=== PATIENT | female | born 1955 | race Caucasian/White ===

== ENCOUNTER 2018-04-22 00:48 | Inpatient (IN) ==
--- NOTE | 2018-04-22 01:13 | Emergency Department Note ---
Disposition Clinical Impression: Acute alteration in mental status, Hypokalemia Disposition: Admitted As Inpatient Condition: Critical Time of Disposition: 04:12 Altered Mental Status HPI - General Chief Complaint: ED General Medical Stated Complaint: "Family Thinks She's Over Medicated" Time Seen by Provider: 04/22/18 00:58 Source: patient, family Mode of arrival: ambulatory Limitations: no limitations Nursing Notes Reviewed: Yes Vital Signs Reviewed: Yes - History of Present Illness HPI Narrative: 62-year-old female with history of brain aneurysm with previous clips, and psychiatric complaints arrives to the emergency department with alteration in mentation from baseline. The patient was recently started on Lexapro today as well as a recent baclofen prescription. The patient has been taking her prescriptions as prescribed. She denies any alcohol, recreational drug use associated with it. Patient is also on Xanax. The patient's family counted her pills and noted that the patient had taken more baclofen over the course of the past few days and prescribed but the patient is unsure of her exact prescription dose. The patient has had some alteration in mentation to the point where she states she is very dizzy and her family had to wake her up in the car. She denies any confusion in the room. The patient was noted to have multiple episodes where she is repeating herself and making jerking movements per family. No seizure-like activity noted. Patient denies any other complaints at this time. She is alert and oriented x3. - Related Data Home Medications Medication Instructions Recorded Confirmed ALPRAZolam [Xanax 1 MG Tablet] 1 mg PO QID 07/12/16 07/12/16 Escitalopram [Lexapro] 40 mg PO DAILY 07/12/16 07/12/16 Gabapentin [Neurontin] 300 mg PO HS 07/12/16 07/12/16 Ibuprofen [Motrin] 800 mg PO TID 07/12/16 07/12/16 Mirtazapine [Mirtazapine] 45 mg PO HS 07/12/16 07/12/16 Multivitamin [Multivitamins] 1 tab PO DAILY 07/12/16 08/27/17 Potassium Chloride [K-Tab ER] 10 meq PO BID 07/12/16 08/27/17 Ropinirole [Requip] 3 mg PO HS 07/12/16 08/27/17 Trazodone HCl 200 mg PO DAILY 07/12/16 08/27/17 hydroCHLOROthiazide 25 mg PO DAILY 07/12/16 08/27/17 [Hydrochlorothiazide] ALPRAZolam [Xanax 1 MG Tablet] 1 mg PO QID PRN 08/27/17 08/27/17 Gabapentin [Neurontin] 300 mg PO DAILY PRN 08/27/17 08/27/17 Mirtazapine [Remeron] 45 mg PO DAILY 08/27/17 08/27/17 Zolpidem [Ambien] 10 mg PO HS PRN 08/27/17 08/27/17 Previous Rx's Medication Instructions Recorded HYDROcodone/Acet 5/325 mg [[place] 1 - 2 tab PO Q4H PRN 3 Days #10 tab 04/03/18 5-325 mg] cephALEXin [Keflex] 500 mg PO BID 5 Days #10 capsule 04/03/18 Allergies Allergy/AdvReac Type Severity Reaction Status Date / Time No Known Allergies Allergy Verified 04/22/18 00:54 All systems ED: reviewed and negative except as stated. Constitutional: Denies: fever, chills, weakness ENT ED: Denies: congestion Cardiovascular: Denies: chest pain Respiratory: Denies: dyspnea Gastrointestinal: Denies: abdominal pain, nausea, vomiting Genitourinary: Denies: urgency, dysuria Musculoskeletal: Denies: back pain, neck pain Integumentary: Denies: rash Neurological: Reports: confusion. Denies: headache, weakness, numbness, paresthesias, abnormal gait, vertigo Psychiatric: Denies: anxiety Past Medical History - Past Medical History Attestation: Yes The following information was validated with the patient. Source: patient, old records reviewed Medical history: Reports: COPD, GERD, hyperlipidemia, hypertension, other Surgical history: Reports: appendectomy, hysterectomy Psychiatric history: Reports: anxiety, depression - Social History Smoking Status: Current every day smoker Smokeless Tobacco Status: No Alcohol use: Reports: none Drug use: Reports: none Physical Exam - General Limitations: no limitations General appearance: alert, in no apparent distress - Head Head exam: atraumatic, normocephalic, normal inspection - Eye Eye exam: Present: normal appearance, PERRL, EOMI - ENT ENT exam: normal exam, normal oropharynx, mucous membranes moist - Neck Neck exam: Present: normal inspection, full ROM, trachea midline - Chest Chest inspection: Present: normal inspection, symmetric chest wall rise - Respiratory Respiratory exam: Present: normal lung sounds bilaterally - Cardiovascular Cardiovascular exam: Present: regular rate, normal rhythm, normal heart sounds - Abdominal Exam Abdominal exam: Present: soft, Non-Tender. Absent: tenderness, distention, guarding, rebound, rigidity - Extremities Exam Extremities exam: Present: normal inspection, full ROM. Absent: tenderness, pedal edema - Neurological Exam Neurological exam: Present: alert, oriented X3 - Expanded Neurological Exam Patient oriented to: Present: person, place, time Speech: Present: fluid speech Cranial nerves: EOM function (II, III, IV, ): Normal, facial sensation (V): Normal, facial palsy (VII): Normal Cerebellar function: normal gait Motor strength - LUE: 5/5 Motor strength - RUE: 5/5 Motor strength - LLE: 5/5 Motor strength - RLE: 5/5 Sensory exam upper extremity: light touch: Normal Sensory exam lower extremity: light touch: Normal Coma Scale Eye Opening: Spontaneous Coma Scale Motor Response: Obeys Commands Coma Scale Verbal Response: Oriented Coma Scale Total: 15 - Skin Skin exam: Present: warm, dry, intact, normal color Course - Reevaluation(s) Reevaluation #1: Patient was experiencing continued alteration in mentation to the point where she became uncooperative. Given the patient's uncooperative behavior and alteration in mentation to the point where we did not feel as though the patient is protecting her airway, the patient was subsequently intubated. The patient's son and family were made aware and agreed to plan of care. At this time we are concerned about possible intracranial versus pharmacologic etiology of her symptoms. Please control was notified. Patient was started on a propofol drip after intubation. Patient's lab work is currently pending. Family is at bedside and agrees with plan of care at this time. Time: 02:42 Reevaluation #2: Spoke with Poison control with update on labs. No further recommendations at this time. Time: 04:05 - Consultations Consultation #1: Attending physician spoke to poison control due to patient's numerous medications. Recommendations of benzodiazepine and further workup. Time: 02:34 Vital Signs Temperature 98.2 F 04/22/18 00:54 Pulse Rate 97 04/22/18 00:54 Respiratory Rate 18 04/22/18 00:54 Blood Pressure 153/84 04/22/18 00:54 O2 Sat by Pulse Oximetry 92 04/22/18 00:54 Temperature 98.2 F 04/22/18 00:54 Pulse Rate 67 04/22/18 04:16 Respiratory Rate 18 04/22/18 04:16 Blood Pressure 100/63 04/22/18 04:16 O2 Sat by Pulse Oximetry 95 04/22/18 04:16 Oxygen Delivery Oxygen Delivery Ventilator Procedures - Intubation Time out performed: Yes sedative: Etomidate Mg Given: 20 paralytic: Rocuronium Mg Given: 100 Laryngoscope: Meghan Assist Device Used: Bougie ET Tube Size: 7.5 ET Tube Uncuffed: No Tube Secured Depth (cm): 22 Tube Secured Location: lips Tube Placement Confirmation: visualized tube passing through cords, equal breath sounds bilaterally, no breath sounds over epigastrium Patient Tolerated Procedure: well, no complications Intubation Complications: none Altered Mental Status - MDM Narrative Medical decision making narrative: Patient's workup in the emergency department demonstrates no an etiology for patient's symptoms. During her ED visit the patient became combative and unable to be controlled. She was fighting any further care and was restricting ability to obtain labs and CT scan of the head. The patient's O2 saturation continued to drop into the upper 80s and low 90s. There was concern about mental status at that time so it was elected to intubate the patient and discussion with the patient's niece as well as son over the phone. They both agreed to plan of care. CTA of the head and neck demonstrates no acute process. Chest x-ray demonstrates left lower lobe atelectasis versus pneumonia so the patient was started on Rocephin. The patient's lab work is otherwise unremarkable. Patient was started on propofol drip to which she was continued to fight the ventilator and pullout the tube so that time the patient was administered 1 dose of Versed. She continued with this so physical drip was ordered. The femoral drip was not started however and the patient is now remain calm on propofol which we are currently weaning down. The patient's tachycardia and hypertension have begun to resolve and is now normotensive and expressing normal heart rate. The patient will be admitted to the ICU at this time. Poison control is aware of the patient in case and will continue to follow. Accepted by Dr. Novoa. Patient received 70 minutes of critical care time for evaluation of life- threatening illness requiring resuscitative efforts. This does not include interpretation of EKGs, x-rays, or billable procedures. - Lab Data Lab results reviewed: Yes I reviewed the patient's lab results. Result diagrams: 04/22/18 01:10 04/22/18 01:10 Lab Results 04/22/18 04/22/18 04/22/18 Range/Units 01:10 01:10 01:10 WBC 11.5 H (4.3-11.1) K/mcL RBC 4.58 (3.82-4.97) M/mcL Hgb 14.1 (11.5-15.4) g/dL Hct 41.8 (35.3-44.9) % MCV 91.3 (83.0-100.0) fL MCH 30.8 (28.0-33.3) pg MCHC 33.7 (31.6-35.5) g/dL RDW 12.5 (11.5-14.5) % Plt Count 341 (140-400) K/mcL MPV 8.4 L (9.4-12.4) fL Immature Gran % 0.3 (0-4) % Seg Neutrophils % 64.1 % Lymphocytes % 26.6 % Monocytes % 8.0 % Eosinophils % 0.7 % Basophils % 0.3 % Neutrophils # 7.4 (1.6-8.9) K/mcL Lymphocytes # 3.1 (0.6-4.6) K/mcL Monocytes # 0.9 (0.0-1.3) K/mcL Eosinophils # 0.1 (0.0-0.6) K/mcL Basophils # 0.0 (0.0-0.2) K/mcL PT 11.2 (9.4-12.1) Seconds INR 1.0 APTT 31.9 (26.0-36.0) Seconds VBG pH (7.32-7.42) pH Units VBG pCO2 (41-51) mmHg VBG pO2 (25-50) mmHg VBG HCO3 (21-27) mEq/L Sodium 136 (136-145) mEq/L Potassium 3.2 L (3.5-5.1) mEq/L Chloride 104 (98-107) mEq/L Carbon Dioxide 22 L (23-29) mEq/L BUN 23 (8-23) mg/dL Creatinine 1.04 (0.60-1.20) mg/dL Est GFR ( Amer) > 60 (> 60) Est GFR (Non-Af Amer) 54 L (> 60) BUN/Creatinine Ratio 22 (6-26) Glucose 118 H (70-105) mg/dL Calculated Osmolality 287 (280-300) Lactic Acid (0.5-2.2) mmol/L Calcium 9.9 (8.6-10.3) mg/dL Total Bilirubin 0.4 (0.3-1.0) mg/dL Direct Bilirubin 0.1 (0.0-0.2) mg/dL Indirect Bilirubin 0.3 (0.0-1.2) mg/dL AST 22 (13-39) Units/L ALT 20 (7-52) Units/L Alkaline Phosphatase 93 (34-104) Units/L Creatine Kinase 70 (30-223) Units/L Troponin I < 0.03 (< 0.04) ng/mL Serum Total Protein 7.6 (6.4-8.9) g/dL Albumin 4.6 (3.5-5.7) g/dL Globulin 3.0 (2.4-3.5) g/dL Albumin/Globulin Ratio 1.5 (1.1-2.2) Urine Color (Yellow) Urine Clarity (Clear) Urine pH (5.0-8.0) pH Units Ur Specific [place] (1.010-1.025) Urine Protein (Neg-Trace) mg/dL Urine Glucose (UA) (Normal) mg/dL Urine Ketones (Negative) mg/dL Urine Blood (Negative) Urine Nitrite (Negative) Urine Bilirubin (Negative) Urine Urobilinogen (Normal) mg/dL Ur Leukocyte Esterase (Negative) Urine Microscopic RBC (0-3) per hpf Urine Microscopic WBC (0-3) per hpf Ur Squamous Epith Cells (None-Few) per lpf Urine Bacteria (None-Few) per hpf Hyaline Casts (None-Few) per lpf Ur Culture Indicated? (NO) Salicylates < 2.5 L (15.0-30.0) mg/dL Urine Opiates Screen (Vgswzw=826) ng/mL Acetaminophen < 10 L (10-20) mcg/mL Ur Barbiturates Screen (Emudii=446) ng/mL Ur Phencyclidine Scrn (Cutoff=25) ng/mL Ur Amphetamines Screen (Wtmpkr=9305) ng/mL U Benzodiazepines Scrn (Tkectc=558) ng/mL Urine Cocaine Screen (Cutoff= 300) ng/mL U Marijuana (THC) Screen (Cutoff = 50) ng/mL Ur Drug Screen Interp Ethyl Alcohol < 10 (Less than 10) mg/dL 04/22/18 04/22/18 04/22/18 Range/Units 02:30 02:34 02:34 WBC (4.3-11.1) K/mcL RBC (3.82-4.97) M/mcL Hgb (11.5-15.4) g/dL Hct (35.3-44.9) % MCV (83.0-100.0) fL MCH (28.0-33.3) pg MCHC (31.6-35.5) g/dL RDW (11.5-14.5) % Plt Count (140-400) K/mcL MPV (9.4-12.4) fL Immature Gran % (0-4) % Seg Neutrophils % % Lymphocytes % % Monocytes % % Eosinophils % % Basophils % % Neutrophils # (1.6-8.9) K/mcL Lymphocytes # (0.6-4.6) K/mcL Monocytes # (0.0-1.3) K/mcL Eosinophils # (0.0-0.6) K/mcL Basophils # (0.0-0.2) K/mcL PT (9.4-12.1) Seconds INR APTT (26.0-36.0) Seconds VBG pH (7.32-7.42) pH Units VBG pCO2 (41-51) mmHg VBG pO2 (25-50) mmHg VBG HCO3 (21-27) mEq/L Sodium (136-145) mEq/L Potassium (3.5-5.1) mEq/L Chloride (98-107) mEq/L Carbon Dioxide (23-29) mEq/L BUN (8-23) mg/dL Creatinine (0.60-1.20) mg/dL Est GFR ( Amer) (> 60) Est GFR (Non-Af Amer) (> 60) BUN/Creatinine Ratio (6-26) Glucose (70-105) mg/dL Calculated Osmolality (280-300) Lactic Acid 1.8 (0.5-2.2) mmol/L Calcium (8.6-10.3) mg/dL Total Bilirubin (0.3-1.0) mg/dL Direct Bilirubin (0.0-0.2) mg/dL Indirect Bilirubin (0.0-1.2) mg/dL AST (13-39) Units/L ALT (7-52) Units/L Alkaline Phosphatase (34-104) Units/L Creatine Kinase (30-223) Units/L Troponin I (< 0.04) ng/mL Serum Total Protein (6.4-8.9) g/dL Albumin (3.5-5.7) g/dL Globulin (2.4-3.5) g/dL Albumin/Globulin Ratio (1.1-2.2) Urine Color Yellow (Yellow) Urine Clarity Clear (Clear) Urine pH 6.5 (5.0-8.0) pH Units Ur Specific [place] 1.021 (1.010-1.025) Urine Protein Trace (Neg-Trace) mg/dL Urine Glucose (UA) Normal (Normal) mg/dL Urine Ketones Negative (Negative) mg/dL Urine Blood Negative (Negative) Urine Nitrite Negative (Negative) Urine Bilirubin Negative (Negative) Urine Urobilinogen Normal (Normal) mg/dL Ur Leukocyte Esterase Negative (Negative) Urine Microscopic RBC 0-3 (0-3) per hpf Urine Microscopic WBC 0-3 (0-3) per hpf Ur Squamous Epith Cells None Seen (None-Few) per lpf Urine Bacteria None Seen (None-Few) per hpf Hyaline Casts None Seen (None-Few) per lpf Ur Culture Indicated? NO (NO) Salicylates (15.0-30.0) mg/dL Urine Opiates Screen Negative (Tilfmv=260) ng/mL Acetaminophen (10-20) mcg/mL Ur Barbiturates Screen Negative (Zkzslh=681) ng/mL Ur Phencyclidine Scrn Negative (Cutoff=25) ng/mL Ur Amphetamines Screen Negative (Tngmyc=0275) ng/mL U Benzodiazepines Scrn Positive H (Cpescv=678) ng/mL Urine Cocaine Screen Negative (Cutoff= 300) ng/mL U Marijuana (THC) Screen Negative (Cutoff = 50) ng/mL Ur Drug Screen Interp See Below Ethyl Alcohol (Less than 10) mg/dL 06/27/18 Range/Units 02:36 WBC (4.3-11.1) K/mcL RBC (3.82-4.97) M/mcL Hgb (11.5-15.4) g/dL Hct (35.3-44.9) % MCV (83.0-100.0) fL MCH (28.0-33.3) pg MCHC (31.6-35.5) g/dL RDW (11.5-14.5) % Plt Count (140-400) K/mcL MPV (9.4-12.4) fL Immature Gran % (0-4) % Seg Neutrophils % % Lymphocytes % % Monocytes % % Eosinophils % % Basophils % % Neutrophils # (1.6-8.9) K/mcL Lymphocytes # (0.6-4.6) K/mcL Monocytes # (0.0-1.3) K/mcL Eosinophils # (0.0-0.6) K/mcL Basophils # (0.0-0.2) K/mcL PT (9.4-12.1) Seconds INR APTT (26.0-36.0) Seconds VBG pH 7.32 (7.32-7.42) pH Units VBG pCO2 47 (41-51) mmHg VBG pO2 184 H (25-50) mmHg VBG HCO3 24 (21-27) mEq/L Sodium (136-145) mEq/L Potassium (3.5-5.1) mEq/L Chloride (98-107) mEq/L Carbon Dioxide (23-29) mEq/L BUN (8-23) mg/dL Creatinine (0.60-1.20) mg/dL Est GFR ( Amer) (> 60) Est GFR (Non-Af Amer) (> 60) BUN/Creatinine Ratio (6-26) Glucose (70-105) mg/dL Calculated Osmolality (280-300) Lactic Acid (0.5-2.2) mmol/L Calcium (8.6-10.3) mg/dL Total Bilirubin (0.3-1.0) mg/dL Direct Bilirubin (0.0-0.2) mg/dL Indirect Bilirubin (0.0-1.2) mg/dL AST (13-39) Units/L ALT (7-52) Units/L Alkaline Phosphatase (34-104) Units/L Creatine Kinase (30-223) Units/L Troponin I (< 0.04) ng/mL Serum Total Protein (6.4-8.9) g/dL Albumin (3.5-5.7) g/dL Globulin (2.4-3.5) g/dL Albumin/Globulin Ratio (1.1-2.2) Urine Color (Yellow) Urine Clarity (Clear) Urine pH (5.0-8.0) pH Units Ur Specific [place] (1.010-1.025) Urine Protein (Neg-Trace) mg/dL Urine Glucose (UA) (Normal) mg/dL Urine Ketones (Negative) mg/dL Urine Blood (Negative) Urine Nitrite (Negative) Urine Bilirubin (Negative) Urine Urobilinogen (Normal) mg/dL Ur Leukocyte Esterase (Negative) Urine Microscopic RBC (0-3) per hpf Urine Microscopic WBC (0-3) per hpf Ur Squamous Epith Cells (None-Few) per lpf Urine Bacteria (None-Few) per hpf Hyaline Casts (None-Few) per lpf Ur Culture Indicated? (NO) Salicylates (15.0-30.0) mg/dL Urine Opiates Screen (Zwrxxo=958) ng/mL Acetaminophen (10-20) mcg/mL Ur Barbiturates Screen (Qyfzul=955) ng/mL Ur Phencyclidine Scrn (Cutoff=25) ng/mL Ur Amphetamines Screen (Kcsjoi=9868) ng/mL U Benzodiazepines Scrn (Lrsjpa=807) ng/mL Urine Cocaine Screen (Cutoff= 300) ng/mL U Marijuana (THC) Screen (Cutoff = 50) ng/mL Ur Drug Screen Interp Ethyl Alcohol (Less than 10) mg/dL - Radiology Data Radiology results reviewed: Yes I reviewed the patient's radiology results. Chest X-Ray 04/22/18 01:10 IMPRESSION: 1. The endotracheal tube tip is 2-3 cm above the laz[place]. 2. Left basilar atelectasis or pneumonia. D/ / Cedric Chavez MD / Cedric Chavez MD Interpreting Provider: Cedric Chavez MD Angiography CT 04/22/18 02:18 IMPRESSION: Calcified plaques at the origins of the internal carotid arteries do not result in significant stenosis by NASCET criteria. Patent vertebral arteries bilaterally. Minimal calcified plaques at the origin the left vertebral artery compatible with mild stenosis. Patent [place] of [place]. A-comm and right MCA bifurcation aneurysm clips without acute findings. Extensive emphysematous changes of the lung apices. D/ / Patrick Westfall / Patrick Westfall Interpreting Provider: Patrick Westfall Neck CTA 04/22/18 02:18 IMPRESSION: Calcified plaques at the origins of the internal carotid arteries do not result in significant stenosis by NASCET criteria. Patent vertebral arteries bilaterally. Minimal calcified plaques at the origin the left vertebral artery compatible with mild stenosis. Patent [place]. A-comm and right MCA bifurcation aneurysm clips without acute findings. Extensive emphysematous changes of the lung apices. D/ / Patrick Westfall / Patrick Westfall Interpreting Provider: Patrick Westfall - EKG Data EKG attestation: Yes I reviewed and interpreted this EKG. EKG results narrative: Heart rate 75 beats for minute. Normal sinus rhythm with sinus arrhythmia. No ST elevation or ST depression noted. TPA Checklist - LKW: 3-4.5 hrs Add. Warnings/Precautions Patient/family understanding: The patient/family members have been counseled and understood the risk, benefit , and alternatives of treatment. Critical Care Time Critical Care Time: Yes Total Critical Care Time: 35 Attestation: The high probability of a clinically significant, sudden or life threatening deterioration of the [respiratory ] system(s) required my full and direct attention, intervention and personal management. The aggregate critical care time was [35] minutes. This time is in addition to time spent performing reported procedures but includes the following: Attestation Statement - Attestation Attestation: I examined this patient and my medical decision-making was reviewed with the Resident Physician. I agree with the documented findings, disposition and treatment plan as described except to the extent set forth below. Findings consistent with altered mental status and respiratory failure. Patient required emergent intubation for airway protection and to facilitate advanced imaging to ro intercranial process. Poison control was notified. Patient will be admitted to intensive care unit for ventilatory management and treatment of possible toxicological complications..
[2018-04-22] MEDS ORDERED: *HR* LORazepam 2 MG/ML VIAL IVP ONE (01:31)
[2018-04-22] MEDS ORDERED: Isovue-370 500 ML INFUS..BTL IV ONE (02:18)
[2018-04-22 02:37] LABS: Basophils % 0.3 %; Eosinophils # 0.1 K/mcL (0.0-0.6); Eosinophils % 0.7 %; Hematocrit 41.8 % (35.3-44.9); Hemoglobin 14.1 g/dL (11.5-15.4); Immature Granulocytes % 0.3 % (0-4); Lymphocytes # 3.1 K/mcL (0.6-4.6); Lymphocytes % 26.6 %; Mean Corpuscular HGB Conc 33.7 g/dL (31.6-35.5); Mean Corpuscular Hemoglobin 30.8 pg (28.0-33.3); Mean Corpuscular Volume 91.3 fL (83.0-100.0); Mean Platelet Volume 8.4 fL (9.4-12.4); Monocytes # 0.9 K/mcL (0.0-1.3); Neutrophils # 7.4 K/mcL (1.6-8.9); Platelet Count 341 K/mcL (140-400); Red Blood Count 4.58 M/mcL (3.82-4.97); Red Cell Distribution Width 12.5 % (11.5-14.5); Segmented Neutrophils % 64.1 %
[2018-04-22 02:40] LABS: VBG HCO3 24 mEq/L (21-27); VBG PCO2 47 mmHg (41-51); VBG PH 7.32 pH Units (7.32-7.42); VBG PO2 184 mmHg (25-50)
[2018-04-22 02:44] LABS: Prothrombin Time 11.2 Seconds (9.4-12.1)
[2018-04-22 02:47] LABS: Activated Partial Thrombo Time 31.9 Seconds (26.0-36.0)
[2018-04-22 02:53] LABS: Bilirubin,Urine Negative (Negative); Blood,Urine Negative (Negative); Clarity,Urine Clear (Clear); Color,Urine Yellow (Yellow); Glucose,Urine (UA) Normal (Normal); Ketones,Urine Negative (Negative); Leukocyte Esterase,Urine Negative (Negative); Nitrite,Urine Negative (Negative); PH,Urine 6.5 pH Units (5.0-8.0); Protein,Urine Trace mg/dL (Neg-Trace); Specific Gravity,Urine 1.021 (1.010-1.025); Urobilinogen,Urine Normal (Normal)
[2018-04-22 02:55] LABS: Bacteria,Urine None Seen per hpf (None-Few); Hyaline Casts,Urine None Seen per lpf (None-Few); RBC,Urine 0-3 per hpf (0-3); Squamous Epithelial Cell,Urine None Seen per lpf (None-Few); WBC,Urine 0-3 per hpf (0-3)
[2018-04-22] MEDS ORDERED: *HR* Midazolam HCl 2 MG/2 ML VIAL ONE (02:55)
[2018-04-22] MEDS ORDERED: *HR* Midazolam HCl 5 MG/5 ML VIAL IVP PRN (02:56)
[2018-04-22 03:05] LABS: Troponin I < 0.03 ng/mL (< 0.04)
[2018-04-22 03:06] LABS: Acetaminophen < 10 mcg/mL (10-20); Alanine Aminotransferase 20 Units/L (7-52); Albumin 4.6 g/dL (3.5-5.7); Albumin/Globulin Ratio 1.5 (1.1-2.2); Alkaline Phosphatase 93 Units/L (34-104); Aspartate Amino Transferase 22 Units/L (13-39); BUN/Creatinine Ratio 22 (6-26); Bilirubin,Direct 0.1 mg/dL (0.0-0.2); Bilirubin,Indirect 0.3 mg/dL (0.0-1.2); Bilirubin,Total 0.4 mg/dL (0.3-1.0); Blood Urea Nitrogen 23 mg/dL (8-23); Calcium 9.9 mg/dL (8.6-10.3); Carbon Dioxide 22 mEq/L (23-29); Chloride 104 mEq/L (98-107); Creatine Kinase 70 Units/L (30-223); Ethanol < 10 mg/dL (Less than 10); Glucose 118 mg/dL (70-105); Osmolality,Calculated 287 (280-300); Potassium 3.2 mEq/L (3.5-5.1); Salicylate < 2.5 mg/dL (15.0-30.0); Sodium 136 mEq/L (136-145); Total Protein 7.6 g/dL (6.4-8.9); eGFR For African Americans > 60 (> 60); eGFR For Non-African Americans 54 (> 60)
[2018-04-22] MEDS ORDERED: FentaNYL (PF) 1,000 MCG in 0.9 % Sodium Chloride 80 ML IVC SCH (03:30)
[2018-04-22 03:38] LABS: Amphetamine Screen,Urine Negative ng/mL (Cutoff=1000); Barbiturate Screen,Urine Negative ng/mL (Cutoff=200); Benzodiazepines Screen,Urine Positive ng/mL (Cutoff=200); Cannabinoid Screen,Urine Negative ng/mL (Cutoff = 50); Cocaine Screen,Urine Negative ng/mL (Cutoff= 300); Opiate Screen,Urine Negative ng/mL (Cutoff=300); Phencyclidine Screen,Urine Negative ng/mL (Cutoff=25)
[2018-04-22] MEDS ORDERED: cefTRIAXone 1,000 MG in Water for inj. (sterile) 20 ML 10 ML IVP ONE (03:50)
[2018-04-22] MEDS ORDERED: 0.9 % Sodium Chloride 1,000 ML ONE (03:54)
[2018-04-22] MEDS ORDERED: 0.9 % Sodium Chloride 1,000 ML IVC ONE (04:02)
[2018-04-22] MEDS ORDERED: *HR* Rocuronium Bromide 100 MG/10 ML VIAL IVC ONE (04:20)
[2018-04-22] MEDS ORDERED: *HR* Etomidate 20 MG/10 ML AMPUL IVP ONE (04:20)
[2018-04-22] MEDS ORDERED: Lacri-Lube 3.5 GM TUBE BOTH EYES PRN (05:00)
[2018-04-22] MEDS ORDERED: Potassium Phosphate 44 MEQ in 0.9 % Sodium Chloride 250 ML IVPB PRN (05:00)
--- NOTE | 2018-04-22 05:22 | Internal Med History&Physical ---
Date of Encounter: 04/22/18 Time of Encounter: 05:22 Internal Medicine - H&P: [facility] History of present illness: Ms. Flores is a 62 year old female with PMH of COPD, hyperlipidemia, hypertension, brain aneurysm with clips, and psychiatric complaints presented to the emergency department today with altered mental status. Patient is intubated and unable to provide history, therefore the majority of the information comes from the ER documentation. Per ER note, patient was started on Lexapro today and recently received baclofen prescription, she reports taking her prescriptions as prescribed. She does take xanax, which she has prescription for. Patient also takes baclofen, but she does not know exactly what dose she is prescribed. The family had been counting her pills and they noted she'd been taking more baclofen the last several days than what is prescribed. The patient's family counted her pills and noted that the patient had taken more baclofen over the course of the past few days and prescribed but the patient is unsure of her exact prescription dose. Regarding her change in mental status from baseline, the family reports the patient has had multiple episodes where she makes jerking movements and repeating herself when speaking. The family denies witnessing seizure-like activity. From what I can gather, the patient complained of dizziness and fell asleep in the car (presumably on the way to the ED) and the family had to wake her up. In the emergency department the patient had no complaints and was noted to be alert and oriented 3. While being worked up in the emergency department the patient continued to have altered mental status and became uncooperative to the point of concern for her ability to protect her own airway--she was subsequently intubated and started on a propofol gtt. CXR suspicious for possible LLL pneumonia and she was started on Rocephin. Past Med Surg Social Fam HX - Past Medical History Medical history: COPD, GERD, hyperlipidemia, hypertension, other Additional medical history: 2 brain anuerism, 3 clips in head, partial bowel removal Psychiatric history: anxiety, depression - Past Surgical History Surgical History: appendectomy, hysterectomy Additional surgical history: Lymph node removal in neck, brain aneurysm with clips 2004, sigmoid rescetion 1997, right shoulder total repair - Social History Smoking Status: Current every day smoker Smokeless Tobacco Status: No Alcohol use: none Drug use: none Internal Medicine - H&P: Meds ALPRAZolam [Xanax 1 MG Tablet] 1 mg PO QID 07/12/16 [History] Escitalopram [Lexapro] 40 mg PO DAILY 07/12/16 [History] Gabapentin [Neurontin] 300 mg PO HS 07/12/16 [History] Ibuprofen [Motrin] 800 mg PO TID 07/12/16 [History] Mirtazapine [Mirtazapine] 45 mg PO HS 07/12/16 [History] Multivitamin [Multivitamins] 1 tab PO DAILY 07/12/16 [History] Potassium Chloride [K-Tab ER] 10 meq PO BID 07/12/16 [History] Ropinirole [Requip] 3 mg PO HS 07/12/16 [History] Trazodone HCl 200 mg PO DAILY 07/12/16 [History] hydroCHLOROthiazide [Hydrochlorothiazide] 25 mg PO DAILY 07/12/16 [History] ALPRAZolam [Xanax 1 MG Tablet] 1 mg PO QID PRN 08/27/17 [History] Gabapentin [Neurontin] 300 mg PO DAILY PRN 08/27/17 [History] Mirtazapine [Remeron] 45 mg PO DAILY 08/27/17 [History] Zolpidem [Ambien] 10 mg PO HS PRN 08/27/17 [History] HYDROcodone/Acet 5/325 mg [Vail 5-325 mg] 1 - 2 tab PO Q4H PRN 3 Days #10 tab 04/03/18 [Rx] cephALEXin [Keflex] 500 mg PO BID 5 Days #10 capsule 04/03/18 [Rx] 3 Allergy/AdvReac Type Severity Reaction Status Date / Time No Known Allergies Allergy Verified 04/22/18 00:54 ROS unobtainable: due to endotracheal tube All Systems PM: A 10-system review of systems was performed and is negative for pertinent findings except as documented above in the HPI. - Constitutional Vitals: Temp Pulse Resp BP Pulse Ox 98.2 F 60 19 111/70 96 04/22/18 00:54 04/22/18 04:34 04/22/18 04:50 04/22/18 04:34 04/22/18 04:50 General appearance: Present: A&O X 0 (sedated on mechanical ventilation), no acute distress - Head Head exam: Present: atraumatic, normocephalic - Eye Eye exam: Present: normal appearance, PERRL Pupils: Present: PERRL - Neck Neck exam general surgery: Present: trachea midline - Respiratory Respiratory exam: Present: CTAB. Absent: wheezes - Cardiovascular Cardiovascular exam: Present: bradycardia, +S1, +S2 - GI/Abdominal GI/Abdominal exam: Present: normal bowel sounds, soft. Absent: distended, tenderness - Extremities Exam Extremities exam: Present: normal inspection. Absent: cyanotic, pedal edema, tenderness - Neurological Exam Additional comments: Patient is sedated on propofol and fentanyl drips - Skin Skin exam: Present: dry, intact, normal color Internal Med - H&P Results - Labs CBC & Chem 7: 04/22/18 01:10 04/22/18 06:40 - Assessment and plan (1) Encephalopathy acute Current Visit: Yes Status: Acute Assessment and plan: Etiology of altered mental status is unclear at this point--medication overdose? ? Cannot rule out intentional overdose or suicide attempt at this time, may need psych consult at some point Infectious etiology possible--CXR shows possible PNA vs atelectasis of left lung base CT head shows aneurysm clips without acute findings, bilaterally patent vertebral arteries; no intracranial hemorrhage, midline shift, mass effect, or hydrocephalus Metabolic encephalopathy seems less likely, metabolic panel unremarkable except for potassium 3.2 Plan Blood culture 2 Sputum culture with Gram stain Legionella and strep pneumo urine antigens (2) Hypokalemia Current Visit: Yes Status: Acute Assessment and plan: K 3.2 on admission Plan Replace PRN Recheck on daily BMP (3) DVT prophylaxis Current Visit: Yes Status: Acute Assessment and plan: Heparin 5,000 units subQ Q12H - Time Spent With Patient Total time spent is greater than 50% in coordination of care (as documented) at patient's floor/unit and/or counseling patient:
[2018-04-22 05:26] LABS: ABG Base Excess -1 mEq/L (-2 to 3); ABG HCO3 25 mEq/L (21-27); ABG Oxygen Saturation 95 % (95-98); ABG PCO2 45 mmHg (35-45); ABG PH 7.35 pH Units (7.32-7.45); ABG PO2 82 mmHg (85-104); ABG TCO2 26 mEq/L (20-26); Blood Gas Modality VC; Blood Gas PEEP 5 cm H2O; Blood Gas Respiration Rate 16; Blood Gas VT 450 cc
[2018-04-22] MEDS ORDERED: Magnesium Sulfate 2 GM/100 ML PIGGYBACK IVPB PRN (05:45)
[2018-04-22 06:59] LABS: VBG Ionized Calcium 1.13 mmol/L (1.15-1.35)
[2018-04-22 07:14] LABS: Phosphorous 3.2 mg/dL (2.7-4.5)
[2018-04-22 07:16] LABS: BUN/Creatinine Ratio 22 (6-26); Blood Urea Nitrogen 20 mg/dL (8-23); Calcium 9.7 mg/dL (8.6-10.3); Carbon Dioxide 22 mEq/L (23-29); Chloride 105 mEq/L (98-107); Glucose 109 mg/dL (70-105); Osmolality,Calculated 287 (280-300); Potassium 3.5 mEq/L (3.5-5.1); Sodium 137 mEq/L (136-145); eGFR For African Americans > 60 (> 60); eGFR For Non-African Americans > 60 (> 60)
[2018-04-22] MEDS: Lacri-Lube 3.5 GM TUBE BOTH EYES SCH ×2 (08:42→12:08)
[2018-04-22] MEDS ORDERED: Azithromycin 500 MG in D5% in Water 250 ML IVPB SCH (09:00)
[2018-04-22] MEDS ORDERED: Chlorhexidine Rinse 15 ML MOUTHWASH MM SCH (09:00)
[2018-04-22] MEDS ORDERED: Pantoprazole 40 MG VIAL IVP SCH (09:00)
--- NOTE | 2018-04-22 10:46 | Pulmonology Consult Note ---
<Stas Villegas - Last Filed: 04/22/18 10:43> Date of Encounter: 04/22/18 Time of Encounter: 08:46 Assessment and Plan (1) Encephalopathy acute Current Visit: Yes Status: Acute 1. Likely related to a multi drug overdose, unclear if it is intentional as no further history is been elicited. 2. Patient is on sedation and becomes quite agitated when it is weaned. We do think that she is ready for extubation, and we will turn off sedation and plan to extubate her today 3. Once she is extubated we will reevaluate her mental status and we will watch her for several hours and if she remains stable. We will transfer her to the floor. She may eventually need a psychiatry consult 4. We will go ahead and treat her with Rocephin and azithromycin for possible pneumonia based on her chest x-ray, although I do feel this is less likely Systems based plan: - Patient seen and examined. - Labs, radiology, chart personally reviewed. 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 Patient has significant neuro sedatives prescriptions including Lunesta, Ativan, baclofen, and trazodone. 2. Family states that they thought she had some missing baclofen and possibly had some crushed pills. 3. Urine drug screen is positive for benzodiazepines, which she is prescribed but her clinical presentation could have also been consistent with benzodiazepine overdose but more likely baclofen (3) Hypokalemia Current Visit: Yes Status: Acute 1. replaced and is now normal, will continue to monitor (4) DVT prophylaxis Current Visit: Yes Status: Acute 1. [facility] History of Present Illness Consult date: 04/22/18 Requesting physician: Dat Novoa Reason for consult: other (intubated) Chief complaint: AMS History of present illness: Patient presented to the ED with altered mental status and suspected drug overdose. Was intubated for airway protection and is thus in ICU. Patient described this morning and was quite agitated when sedation was weaned. Plan will be to extubate today. Past Med Surg Social Fam HX - Past Medical History Medical history: COPD, GERD, hyperlipidemia, hypertension, other Additional medical history: 2 brain anuerism, 3 clips in head, partial bowel removal Psychiatric history: anxiety, depression - Past Surgical History Surgical History: appendectomy, hysterectomy Additional surgical history: Lymph node removal in neck, brain aneurysm with clips 2004, sigmoid rescetion 1997, right shoulder total repair - Social History Smoking Status: Current every day smoker Smokeless Tobacco Status: No Alcohol use: none Drug use: none Medications and Allergies Trazodone HCl 200 mg PO HS 07/12/16 [History] hydroCHLOROthiazide [Hydrochlorothiazide] 25 mg PO DAILY 07/12/16 [History] ALPRAZolam [Xanax 1 MG Tablet] 1 mg PO QID PRN 08/27/17 [History] Albuterol Sulfate [Ventolin Hfa] 2 puff IH Q6H 04/22/18 [History] Atorvastatin [Lipitor] 10 mg PO DAILY 04/22/18 [History] Baclofen [Lioresal] 10 mg PO HS 04/22/18 [History] Escitalopram [Lexapro] 10 mg PO DAILY 04/22/18 [History] Eszopiclone [Lunesta] 1 mg PO HS 04/22/18 [History] Meloxicam [Meloxicam] 7.5 mg PO DAILY 04/22/18 [History] Mirtazapine [Remeron] 45 mg PO HS 04/22/18 [History] Ondansetron ODT [Zofran ODT] 4 mg SL BID PRN 04/22/18 [History] rOPINIRole [Requip] 3 mg PO HS 04/22/18 [History] 3 Allergy/AdvReac Type Severity Reaction Status Date / Time No Known Allergies Allergy Verified 04/22/18 00:54 ROS unobtainable: due to endotracheal tube All Systems: The remainder of the systems were reviewed and are negative Physical Examination Vital Signs: Vital Signs, Last 4 Hours Temp Pulse Resp BP Pulse Ox 04/22/18 10:00 63 18 109/64 98 04/22/18 09:40 18 116/64 98 06/27/18 09:00 68 18 116/69 100 04/22/18 08:30 98.2 F 56 18 129/73 100 18 08:00 98.2 F 56 18 129/73 100 04/22/18 07:40 98.2 F 04/22/18 07:00 59 18 118/67 100 General appearance: other (intubated and sedated) Eyes: nonicteric ENT: oropharynx dry Neck: supple Effort: normal (vent ) Auscultation: bilateral: clear Cardiovascular: regular rate and rhythm Gastrointestinal: normoactive bowel sounds, non-distended Integumentary: normal Extremities: no cyanosis, no edema, no clubbing Musculoskeletal: no deformities, ROM normal unable to assess due to mental status Ventilator Settings Ventilator Settings: Ventilator Settings, Last 8 Hours Ventilator Tidal Volume 450 Setting Ventilator Tidal Volume 450 Setting Ventilator Tidal Volume 450 Setting Ventilator Tidal Volume 450 Setting Ventilator Tidal Volume 450 Setting Ventilator Tidal Volume 450 Setting Ventilator Tidal Volume 450 Setting Ventilator Tidal Volume 450 Setting Ventilator Tidal Volume 450 Setting Ventilator Tidal Volume 450 Setting Ventilator Tidal Volume 450 Setting Ventilator Tidal Volume 450 Setting Ventilator Respiratory Rate 16 Setting Ventilator Respiratory Rate 16 Setting Ventilator Respiratory Rate 16 Setting Ventilator Respiratory Rate 16 Setting Ventilator Respiratory Rate 16 Setting Ventilator Respiratory Rate 16 Setting Ventilator Respiratory Rate 16 Setting Ventilator Respiratory Rate 16 Setting Ventilator Respiratory Rate 16 Setting Ventilator Respiratory Rate 16 Setting Ventilator Respiratory Rate 16 Setting Ventilator Respiratory Rate 16 Setting Actual Respiratory Rate 19 Actual Respiratory Rate 18 Actual Respiratory Rate 19 Actual Respiratory Rate 19 Actual Respiratory Rate 18 Actual Respiratory Rate 19 Actual Respiratory Rate 19 Actual Respiratory Rate 19 Actual Respiratory Rate 20 Actual Respiratory Rate 18 Actual Respiratory Rate 20 Positive End Expiratory 5 Pressure Positive End Expiratory 5 Pressure Positive End Expiratory 5 Pressure Positive End Expiratory 5 Pressure Positive End Expiratory 5 Pressure Positive End Expiratory 5 Pressure Positive End Expiratory 5 Pressure Positive End Expiratory 5 Pressure Positive End Expiratory 5 Pressure Positive End Expiratory 5 Pressure Positive End Expiratory 5 Pressure Positive End Expiratory 5 Pressure Peak Inspiratory Airway 22 Pressure Peak Inspiratory Airway 27 Pressure Peak Inspiratory Airway 22 Pressure Peak Inspiratory Airway 22 Pressure Peak Inspiratory Airway 26 Pressure Peak Inspiratory Airway 22 Pressure Peak Inspiratory Airway 22 Pressure Peak Inspiratory Airway 23 Pressure Peak Inspiratory Airway 21 Pressure Peak Inspiratory Airway 22 Pressure Peak Inspiratory Airway 18 Pressure Results - Laboratory Findings CBC and BMP: 04/22/18 01:10 04/22/18 06:40 ABG ABG pH 7.35 pH Units (7.32-7.45) 04/22/18 05:22 ABG pCO2 45 mmHg (35-45) 04/22/18 05:22 ABG pO2 82 mmHg (85-104) L 04/22/18 05:22 ABG O2 Saturation 95 % (95-98) 04/22/18 05:22 PT/INR, D-dimer PT 11.2 Seconds (9.4-12.1) 04/22/18 01:10 Abnormal lab findings: Abnormal lab results WBC 11.5 K/mcL (4.3-11.1) H 04/22/18 01:10 MPV 8.4 fL (9.4-12.4) L 04/22/18 01:10 ABG pO2 82 mmHg (85-104) L 04/22/18 05:22 VBG pO2 184 mmHg (25-50) H 04/22/18 02:36 Carbon Dioxide 22 mEq/L (23-29) L 04/22/18 06:40 Glucose 109 mg/dL (70-105) H 04/22/18 06:40 POC Glucose 117 mg/dL (70-99) H 04/22/18 04:59 Venous Ioniz Calcium 1.13 mmol/L (1.15-1.35) L 04/22/18 06:56 Salicylates < 2.5 mg/dL (15.0-30.0) L 04/22/18 01:10 Acetaminophen < 10 mcg/mL (10-20) L 04/22/18 01:10 U Benzodiazepines Scrn Positive ng/mL (Uyflyq=293) H 04/22/18 02:34 - Microbiology Findings Microbiology Findings: Microbiology, Last 48 Hours 04/22/18 06:39 Blood Culture - Preliminary Peripheral Venipuncture Culture is incubating and being continuously monitored for growth. Final report to follow. 04/22/18 06:38 Blood Culture - Preliminary Peripheral Venipuncture Culture is incubating and being continuously monitored for growth. Final report to follow. - Clinical Findings Intake & Output: Intake & Output 04/21/18 04/22/18 04/22/18 23:59 07:59 15:59 Intake Total 79 / 100 Output Total 1300 / 1300 Balance -1221 / -1200 Weight 75 kg Consult Discharge Plan - Plan Referrals: Kori Plascencia MD [Primary Care Provider] - <Mario Toussaint - Last Filed: 04/22/18 23:37> Date of Encounter: 04/22/18 All Systems: The remainder of the systems were reviewed and are negative Results - Laboratory Findings CBC and BMP: 04/22/18 11:53 04/22/18 11:53 ABG ABG pH 7.35 pH Units (7.32-7.45) 04/22/18 05:22 ABG pCO2 45 mmHg (35-45) 04/22/18 05:22 ABG pO2 82 mmHg (85-104) L 04/22/18 05:22 ABG O2 Saturation 95 % (95-98) 04/22/18 05:22 PT/INR, D-dimer PT 11.2 Seconds (9.4-12.1) 04/22/18 01:10 Abnormal lab findings: Abnormal lab results MPV 8.4 fL (9.4-12.4) L 04/22/18 11:53 ABG pO2 82 mmHg (85-104) L 04/22/18 05:22 VBG pO2 184 mmHg (25-50) H 04/22/18 02:36 Venous Ioniz Calcium 1.13 mmol/L (1.15-1.35) L 04/22/18 06:56 Salicylates < 2.5 mg/dL (15.0-30.0) L 04/22/18 01:10 Acetaminophen < 10 mcg/mL (10-20) L 04/22/18 01:10 U Benzodiazepines Scrn Positive ng/mL (Lokrkd=864) H 04/22/18 02:34 - Microbiology Findings Microbiology Findings: Microbiology, Last 48 Hours 04/22/18 06:39 Blood Culture - Preliminary Peripheral Venipuncture Culture is incubating and being continuously monitored for growth. Final report to follow. 04/22/18 06:38 Blood Culture - Preliminary Peripheral Venipuncture Culture is incubating and being continuously monitored for growth. Final report to follow. - Clinical Findings Intake & Output: Intake & Output 04/22/18 04/22/18 04/22/18 07:59 15:59 23:59 Intake Total 79 / 100 145 / 145 0 / 0 Output Total 1300 / 1300 300 / 300 300 / 300 Balance -1221 / -1200 -155 / -155 -300 / -300 Weight 75 kg - Attending Attestation I saw and evaluated this patient and my medical decision-making was reviewed with the Resident Physician. I agree with the documented findings, disposition and treatment plan as described except to the extent set forth below. We independently had [id number] contact with the patient I spent 40 minutes of Critical Care time with this patient. It involved decision making of high complexity to assess, manipulate, and support vital organ system failure and/or to prevent further life threatening deterioration of the patient's condition. The time involved in the performance of separately reportable procedures was not counted toward critical care time. Patient seen and examined at bedside Labs, radiology, chart personally reviewed. Management was reviewed during multidisciplinary critical care rounds. 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 Will do SBT when she wakes up most likely will be extubated today. Cards: Patient hemodynamically stable FEN-GI: NPO will advance diet when extubated Renal: Labs and output reviewed ID: No active issues Heme/Onc: Labs reviewed Endo: Glucose Monitored Integ/MSK: Skin Care per routine ICU Nursing Protocol to prevent ulcers. . Rt hand has some swelling due to some extravasation Lines: All lines examined without evidence of infection : Dispo: Transfer to [facility] after extubation CODE: Full Code
[2018-04-22] MEDS ORDERED: Nicotine 21 MG PATCH.TD24 TD STA (12:02)
[2018-04-22 12:07] LABS: Basophils % 0.2 %; Eosinophils # 0.2 K/mcL (0.0-0.6); Eosinophils % 2.3 %; Hematocrit 44.1 % (35.3-44.9); Hemoglobin 14.3 g/dL (11.5-15.4); Immature Granulocytes % 0.4 % (0-4); Lymphocytes # 3.6 K/mcL (0.6-4.6); Lymphocytes % 34.5 %; Mean Corpuscular HGB Conc 32.4 g/dL (31.6-35.5); Mean Corpuscular Volume 92.6 fL (83.0-100.0); Mean Platelet Volume 8.4 fL (9.4-12.4); Monocytes % 9.9 %; Neutrophils # 5.5 K/mcL (1.6-8.9); Platelet Count 345 K/mcL (140-400); Red Blood Count 4.76 M/mcL (3.82-4.97); Red Cell Distribution Width 12.6 % (11.5-14.5); Segmented Neutrophils % 52.7 %
--- NOTE | 2018-04-22 12:25 | Electrocardiograph Report ---
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
[2018-04-22 12:28] LABS: BUN/Creatinine Ratio 21 (6-26); Blood Urea Nitrogen 16 mg/dL (8-23); Calcium 9.7 mg/dL (8.6-10.3); Carbon Dioxide 26 mEq/L (23-29); Chloride 107 mEq/L (98-107); Glucose 101 mg/dL (70-105); Osmolality,Calculated 291 (280-300); Potassium 3.9 mEq/L (3.5-5.1); Sodium 140 mEq/L (136-145); eGFR For African Americans > 60 (> 60); eGFR For Non-African Americans > 60 (> 60)
[2018-04-22] MEDS ORDERED: *HR* OxyCODONE Immed Rel 5 MG TABLET PO PRN (14:42)
[2018-04-22] MEDS ORDERED: cefTRIAXone 1,000 MG in 0.9 % Sodium Chloride Mini Bag 100 ML IVPB SCH (15:00)
[2018-04-22] MEDS ORDERED: cefTRIAXone 1,000 MG in Water for inj. (sterile) 20 ML 10 ML IVP SCH (15:00)
[2018-04-22] MEDS ORDERED: *HR* Heparin 5,000 UNIT/ML VIAL SQ SCH (18:00)
[2018-04-22] MEDS: *HR* OxyCODONE Immed Rel 5 MG TABLET PO PRN (19:30)
[2018-04-22] MEDS ORDERED: traZODone 50 MG TABLET PO SCH (22:00)
[2018-04-22] MEDS: *HR* Heparin 5,000 UNIT/ML VIAL SQ SCH (22:35)
[2018-04-23] MEDS ORDERED: Menthol 9.1 MG LOZENGE PO PRN (00:22)
[2018-04-23] MEDS ORDERED: ALPRAZolam 0.5 MG TABLET PO ONE (00:42)
[2018-04-23] MEDS: *HR* OxyCODONE Immed Rel 5 MG TABLET PO PRN ×2 (00:58→05:14)
[2018-04-23] MEDS: *HR* Heparin 5,000 UNIT/ML VIAL SQ SCH (05:13)
--- NOTE | 2018-04-23 06:00 | Event Note ---
Date of Encounter: 04/23/18 Time of Encounter: 00:00 Upon evaluation of patient, her hand was edematous, very tender, and warm with tenderness extending up her forearm. radial pulse present. Per nursing, she had an infiltrated IV earlier in the AM on 04/22/18. Patient has a hx of a rotator cuff repair 1 month ago and has had restricted movement in her arm. Due to physical exam findings concerning for DVT, Doppler ultrasound of her right upper extremity was obtained and showed "partial occlusive acute thrombus noted in cephalic vein above elbow proximal to current IV catheter, all other superficial veins appear patent without thrombus, no deep vein thrombus noted." IV was removed from right decubital arm. Patient's hand was rechecked at 6:55AM and swelling has started to decrease and increase movement in her fingers with less pain.
--- NOTE | 2018-04-23 06:21 | Event Note ---
Date of Encounter: 04/23/18 Time of Encounter: 00:00
[2018-04-23 06:36] VITALS: BP 137/75
[2018-04-23] MEDS ORDERED: Azithromycin 500 MG in D5% in Water 250 ML IVPB SCH (09:00)
[2018-04-23] MEDS ORDERED: Pantoprazole 40 MG VIAL IVP SCH (09:00)
[2018-04-23] MEDS ORDERED: Acetaminophen 325 MG TABLET PO PRN (10:17)
[2018-04-23] MEDS ORDERED: Ibuprofen 200 MG TABLET PO PRN (10:17)
[2018-04-23] MEDS ORDERED: ALPRAZolam 1 MG TABLET PO PRN (12:40)
[2018-04-23] MEDS ORDERED: Ondansetron ODT 4 MG TAB.RAPDIS SL PRN (12:40)
[2018-04-23] MEDS ORDERED: hydroCHLOROthiazide 25 MG TABLET PO SCH (12:45)
--- NOTE | 2018-04-23 13:53 | Discharge Summary ---
- NOTES TO OUTPATIENT PROVIDER Notes to Outpatient Provider: Alterd mental status, possibly due to Baclofen use , got intubated briefly; now held Baclofen. right shoulder pain, prefers to f/ up with established Orthopedics in [place]. Orders not resulted at time of discharge: Pending orders 04/22/18 06:09 Culture,Sputum with Gram Stain [RM] Stat 04/22/18 06:39 Culture,Blood [BC] Stat Date of Encounter: 04/23/18 Time of Encounter: 10:00 - Discharge Diagnosis (1) Acute respiratory failure Priority: Primary Status: Acute Qualifiers: Respiratory failure complication: hypoxia Qualified Code(s): J96.01 - Acute respiratory failure with hypoxia (2) COPD (chronic obstructive pulmonary disease) Priority: Secondary Status: Chronic Qualifiers: COPD type: unspecified COPD Qualified Code(s): J44.9 - Chronic obstructive pulmonary disease, unspecified (3) Essential hypertension Priority: Secondary Status: Chronic (4) Hyperlipidemia Priority: Secondary Status: Chronic Qualifiers: Hyperlipidemia type: unspecified Qualified Code(s): E78.5 - Hyperlipidemia , unspecified (5) Depression Priority: Secondary Status: Chronic Qualifiers: Depression Type: unspecified Qualified Code(s): F32.9 - Major depressive disorder, single episode, unspecified (6) Encephalopathy acute Priority: Primary Status: Acute (7) Superficial venous thrombosis of right upper extremity Priority: Primary Status: Acute Hospital course: Ms. Flores is a 62 year old female with the above medical problems, who was brought in by family due to confusion and abnormal behavior. Patient was noted to be extremely agitated in the emergency room and had to be intubated for airway protection. She was subsequently admitted to ICU, successfully extubated the next day. Patient was recently started on baclofen in addition to her regimen of antidepressants, benzodiazepines, which is thought to be the likely reason for her altered mental status. Patient is currently agreeable to holding baclofen. She reports right shoulder pain and has history of recent right shoulder surgery for rotator cuff injury. She declines orthopedic surgery evaluation and wishes to follow up with her established orthopedics in [place]. She developed right hand and forearm swelling due to IV site infiltration. Venous Doppler showed right basilic vein acute thrombosis, no DVT. She also declines physical and occupational therapy evaluation, stating that she is ADL independent and is able to care for herself at home. She is otherwise medically stable for discharge with outpatient follow-up. Discharge discussed with: patient, nurse - Time Spent with Patient Total time spent providing and/or coordinating discharge services: Greater than 30 minutes (45 min) - Discharge Medications Home Medications: Trazodone HCl 200 mg PO HS 07/12/16 [History] hydroCHLOROthiazide [Hydrochlorothiazide] 25 mg PO DAILY 07/12/16 [History] ALPRAZolam [Xanax 1 MG Tablet] 1 mg PO QID PRN 08/27/17 [History] Albuterol Sulfate [Ventolin Hfa] 2 puff IH Q6H 04/22/18 [History] Atorvastatin [Lipitor] 10 mg PO DAILY 04/22/18 [History] Escitalopram [Lexapro] 10 mg PO DAILY 04/22/18 [History] Eszopiclone [Lunesta] 1 mg PO HS 04/22/18 [History] Meloxicam 7.5 mg PO DAILY 04/22/18 [History] Mirtazapine [Remeron] 45 mg PO HS 04/22/18 [History] Ondansetron ODT [Zofran ODT] 4 mg SL BID PRN 04/22/18 [History] rOPINIRole [Requip] 3 mg PO HS 04/22/18 [History] Ibuprofen [Motrin] 200 mg PO Q6HR PRN tablet 04/23/18 [Rx] Allergies/Adverse Reactions: 3 Allergy/AdvReac Type Severity Reaction Status Date / Time No Known Allergies Allergy Verified 04/22/18 00:54 Date of admission: 04/22/18 04:19 Primary care physician: Kori Plascencia MD Consults: 04/22/18 06:09 Consult to Physician [CONS] Routine Consulting Provider: Mario Toussaint Reason for Consult: Ventilator management Call Completed: No 04/22/18 06:11 Consult to Nurse Navigator [CONS] Routine Comment: Discharging clinician: Isha Ruiz Anticipated date of discharge: 04/23/18 - Constitutional Vitals: Temp Pulse Resp BP Pulse Ox 98.5 F 97 17 137/75 93 04/23/18 06:34 04/23/18 06:34 04/23/18 06:34 04/23/18 06:34 04/23/18 06:34 General appearance: Present: A&O X 3, answers questions appropriately - Cardiovascular Cardiovascular exam: Present: RRR, +S1, +S2. Absent: diastolic murmur, gallop, rubs, systolic murmur - Extremities Exam Extremities exam: Present: warm, radial pulses palpable and symmetrical. Absent : calf tenderness, cyanotic, pedal edema Additional comments: Right UE- diffuse tender edema over dorsum of hand upto elbow; radial pulse 2+ - Patient Status Disposition: Home, Self-Care Condition: Good Functional capacity at discharge: independent ambulation Overall status at discharge: patient is progressing back to baseline - Discharge Instructions Instructions: Acute Respiratory Distress Syndrome (DC), How to Stop Smoking (DC ), Chronic Obstructive Pulmonary Disease (DC) Follow Up With: Lor Dorsey CNP [Partnered Physician] - (Appt. requested, their office will call you with appt date & time.) Kori Plascencia MD [Primary Care Provider] - Omar Murphy DO [Non-Partnered Physician] - 06/11/18 (KEEP APPT THAT'S ALREADY SCHEDULED.) Additional Instructions: F/up with PCP in 1-2 weeks F/up with Orthopedics in [place] for right shoulder pain, h/o recent right shoulder surgery; Continue with PT/OT at [facility] for your right shoulder. Continue with ice packs to right arm for superficial blood clot. Consider wearing your oxygen and keep an eye on your oxygen saturations. You can buy pulse ox at [facility]. - Diet and Activity Activity: increase activity as tolerated Diet: low fat, low cholesterol, low salt diet
[2018-04-23] MEDS ORDERED: cefTRIAXone 1,000 MG in Water for inj. (sterile) 20 ML 10 ML IVP SCH (15:00)
[2018-04-23] MEDS ORDERED: Mirtazapine 15 MG TABLET PO SCH (21:00)
== END 2018-04-23 15:28 | disposition home or self-care (01) | DRG 917 ==
LOC: ICNU 00:48 → EMEROO 00:48 → SUATTDRO 04:19 → ICNU 05:03 → 2NENU 18:23
PROVIDERS: ADMIT Family Medicine; ATTEND Internal Medicine